=== PATIENT | female | born 1935 | race Caucasian/White ===

== ENCOUNTER 2025-04-28 11:50 | Inpatient (IN) | payer MEDICARE ==
[~2025-04-28] VITALS: Ht 157.5 cm; Wt 47.6 kg
[2025-04-28 12:00] VITALS: BP 115/61
[2025-04-28] MEDS ORDERED: TRAM50TA2 PO (12:41)
[2025-04-28] MEDS ORDERED: AMLO10TA59 PO (12:41)
[2025-04-28] MEDS ORDERED: LIDO1ADH71 TOP (12:41)
[2025-04-28] MEDS ORDERED: LISI40TA13 PO (12:41)
[2025-04-28] MEDS ORDERED: TRAM100T23 PO (12:41)
[2025-04-28] MEDS ORDERED: BUSP15TA3 PO (12:41)
[2025-04-28] MEDS ORDERED: QUET25TA PO (12:41)
[2025-04-28] MEDS ORDERED: MIRT-73 PO (12:41)
[2025-04-28] MEDS ORDERED: HYDR-501 PO (12:41)
[2025-04-28] MEDS ORDERED: TEMAZEPAM 7.5 MG CAPSULE PO PRN ×2 (16:45→20:00)
[2025-04-28] MEDS ORDERED: MAGNESIUM HYDROXIDE 30 ML LIQUID UDC PO PRN (16:45)
[2025-04-28] MEDS ORDERED: LORAZEPAM 0.5 MG TABLET PO PRN (16:45)
[2025-04-29] MEDS: TEMAZEPAM 7.5 MG CAPSULE PO PRN (02:18)
[2025-04-29 08:14] VITALS: BP 136/87; TEMP 98; O2SAT 96
[2025-04-29 08:16] LABS: ASPARTATE AMINOTRANSFERASE 10 U/L (15-37); CREATININE 0.8 mg/dL (0.6-1.3); SODIUM SERUM 144 mmol/L (136-145); TOTAL PROTEIN, SERUM 6.4 g/dL (6.4-8.2); UREA NITROGEN, BLOOD 24 mg/dL (7-18)
[2025-04-29] MEDS: AMLODIPINE 10 MG TABLET PO SCH (08:58)
[2025-04-29] MEDS ORDERED: LIDOCAINE 5% PATCH TD SCH (09:00)
[2025-04-29] MEDS ORDERED: LIDOCAINE TOP SCH (09:00)
[2025-04-29] MEDS ORDERED: LISINOPRIL 20 MG TABLET PO SCH (09:00)
[2025-04-29] MEDS ORDERED: Medication Not On Formulary EA (Lisinopril 40 MG) PO SCH (09:00)
[2025-04-29] MEDS: LORAZEPAM 1 MG TABLET PO PRN ×2 (09:16→15:32)
[2025-04-29] MEDS: LISINOPRIL 20 MG TABLET PO SCH (11:00)
[2025-04-29] MEDS ORDERED: LEVO75TA7 PO (11:43)
[2025-04-29] MEDS ORDERED: MIRT-73 PO (11:44)
[2025-04-29] MEDS ORDERED: MIRT-93 PO (11:45)
[2025-04-29] MEDS ORDERED: POLY17PO4 PO (11:47)
[2025-04-29] MEDS ORDERED: LACT10SO58 PO (11:48)
[2025-04-29] MEDS ORDERED: LORA2ORA5 SL (11:50)
[2025-04-29] MEDS ORDERED: BISA10SU61 RC (11:51)
[2025-04-29] MEDS ORDERED: MORPHINE 5 MG/ML SL (11:53)
[2025-04-29] MEDS ORDERED: ONDA4TAB11 PO (11:54)
[2025-04-29] MEDS ORDERED: HYOS0.1273 SL (11:55)
[2025-04-29] MEDS ORDERED: ACET650S13 RC (11:56)
[2025-04-29] MEDS ORDERED: SENN8.6T19 PO (11:57)
[2025-04-29] MEDS ORDERED: ACET325T53 PO (11:58)
[2025-04-29] MEDS: ENSURE ENLIVE (VAN) 240 ML LIQUID PO SCH (12:23)
[2025-04-29] MEDS ORDERED: TEMAZEPAM 7.5 MG CAPSULE PO PRN (13:15)
[2025-04-29] MEDS: QUETIAPINE FUMARATE 25 MG TABLET PO SCH (14:15)
[2025-04-29 16:28] VITALS: BP 122/58; TEMP 98; O2SAT 96
[2025-04-29] MEDS: ACETAMINOPHEN 325 MG TABLET PO PRN (16:46)
[2025-04-29 19:49] VITALS: BP 109/51; TEMP 98.3; O2SAT 93
[2025-04-29] MEDS: MIRTAZAPINE 15 MG TABLET PO SCH (20:25)
[2025-04-30] MEDS: TEMAZEPAM 15 MG CAPSULE PO PRN (02:01)
[2025-04-30 07:30] VITALS: BP 142/74; TEMP 97.7; O2SAT 100
[2025-04-30 15:34] VITALS: BP 136/65; TEMP 98.2; O2SAT 95
[2025-04-30] MEDS: QUETIAPINE FUMARATE 25 MG TABLET PO SCH (17:03)
[2025-04-30 19:57] VITALS: BP 145/52; TEMP 97.6; O2SAT 93
[2025-04-30] MEDS: MIRTAZAPINE 15 MG TABLET PO SCH (20:59)
[2025-05-01 08:00] VITALS: BP 136/74; TEMP 98; O2SAT 96
[2025-05-01 15:02] VITALS: BP 99/47; TEMP 98.6; O2SAT 96
[2025-05-01] MEDS: MAG HYDROX/AL HYDROX/SIMETH 30 ML LIQUID UDC PO PRN (15:09)
[2025-05-01 20:00] VITALS: BP 121/58; TEMP 97.9; O2SAT 94
[2025-05-01] MEDS: QUETIAPINE FUMARATE 25 MG TABLET PO SCH (20:17)
[2025-05-02 07:58] VITALS: BP 141/71; TEMP 97.8; O2SAT 96
[2025-05-02 15:35] VITALS: BP 102/56; TEMP 98; O2SAT 92
[2025-05-02 19:53] VITALS: BP 145/75; TEMP 97.9; O2SAT 95
[2025-05-03 07:55] VITALS: BP 110/61; TEMP 98; O2SAT 96
[2025-05-03 15:14] VITALS: BP 125/59; TEMP 98; O2SAT 96
[2025-05-03 20:10] VITALS: BP 141/56; TEMP 97.9; O2SAT 96
[2025-05-04 08:35] VITALS: BP 131/58; TEMP 98; O2SAT 96
[2025-05-04 16:19] VITALS: BP 129/61; TEMP 98; O2SAT 96
[2025-05-04 19:58] VITALS: BP 129/66; TEMP 97.7; O2SAT 92
[2025-05-05 08:53] VITALS: BP 145/75; TEMP 98; O2SAT 96
[2025-05-05 16:10] VITALS: BP 140/69; TEMP 98; O2SAT 96
[2025-05-05] MEDS: CLONAZEPAM 1 MG TABLET PO SCH (17:11)
[2025-05-05] MEDS: QUETIAPINE FUMARATE 25 MG TABLET PO SCH ×2 (17:12→20:05)
[2025-05-05 19:45] VITALS: BP 100/51; TEMP 97.9; O2SAT 94
[2025-05-06 08:24] VITALS: BP 121/59; TEMP 98; O2SAT 96
[2025-05-06 16:35] VITALS: BP 106/82; TEMP 98; O2SAT 96
[2025-05-06 19:41] VITALS: BP 110/53; TEMP 97.8; O2SAT 95
[2025-05-06] MEDS: DIVALPROEX 125 MG TABLET.DR PO SCH (20:12)
[2025-05-07 07:50] VITALS: BP 105/54; TEMP 97.3; O2SAT 94
[2025-05-07 08:04] VITALS: BP 163/91; TEMP 97.2; O2SAT 96
[2025-05-07] MEDS: QUETIAPINE FUMARATE 25 MG TABLET PO SCH (10:36)
[2025-05-07 16:59] VITALS: BP 117/51; TEMP 97.4; O2SAT 97
[2025-05-07 19:43] VITALS: BP 100/51; TEMP 97.9; O2SAT 94
[2025-05-08] MEDS: CLONAZEPAM 1 MG TABLET PO ONE (02:46)
[2025-05-08 08:19] VITALS: BP 132/63; TEMP 98; O2SAT 98
[2025-05-08 09:00] VITALS: BP 132/63
[2025-05-08] MEDS ORDERED: LISI20TA30 PO (10:08)
[2025-05-08] MEDS ORDERED: SENNOSIDES 1 TABLET PO PRN (10:15)
[2025-05-08] MEDS ORDERED: MIRALAX 17 GM POWD.PACK PO PRN (10:15)
[2025-05-08] MEDS ORDERED: LACTULOSE 20 G/30 ML LIQUID UDC PO PRN ×2 (12:15)
[2025-05-09] MEDS ORDERED: LEVOTHYROXINE SODIUM 75 MCG TABLET PO SCH (07:00)
== END 2025-05-08 15:00 | DRG 885 ==
LOC: ER 11:50 → GPS 15:54
PROVIDERS: ADMIT Registered Nurse; ATTEND Internal Medicine
DX: F29 Unspecified psychosis not due to a substance or known physiological condition (principal); E44.1 Mild protein-calorie malnutrition; Z68.1 Body mass index [BMI] 19.9 or less, adult; F03.92 Unspecified dementia, unspecified severity, with psychotic disturbance; E88.09 Other disorders of plasma-protein metabolism, not elsewhere classified; I10 Essential (primary) hypertension; R62.7 Adult failure to thrive; G89.29 Other chronic pain; Z73.6 Limitation of activities due to disability; Z79.899 Other long term (current) drug therapy
CPT/HCPCS: 36415; 73620